=== PATIENT | female | born 1990 | race Caucasian/White ===

== ENCOUNTER 2024-03-17 23:53 | Emergency (ER) | payer OTHER ==
[~2024-03-17] VITALS: Ht 165.1 cm; Wt 75.0 kg
[2024-03-18 00:11] LABS: BILIRUBIN, URINE NEGATIVE (negative); BLOOD/HGB, URINE MODERATE (Negative); KETONE, URINE NEGATIVE (Negative); LEUK ESTERASE, URINE MODERATE (negative); NITRITE, URINE NEGATIVE (negative)
[2024-03-18] MEDS ORDERED: CYCLOBENZAPRINE10 MG PO (00:11)
[2024-03-18] MEDS ORDERED: VENTOLIN HFA18 GM INH (00:12)
[2024-03-18] MEDS ORDERED: GABAPENTIN300 MG PO (00:12)
[2024-03-18 00:30] LABS: EPITHELIAL CELLS, URINE SQUAMOUS 1+ /lpf (0-1+); WHITE BLOOD CELLS, URINE >50 /HPF (0-5)
[2024-03-18] MEDS ORDERED: SODIUM CHLORIDE 0.9% 1,000 ML IV ONE (00:30)
[2024-03-18] MEDS ORDERED: ondansetron HCL 4 MG/2 ML VIAL IV ONE (00:30)
[2024-03-18] MEDS ORDERED: MORPHINE SULFATE 4 MG/ML VIAL IV ONE (00:30)
[2024-03-18 00:31] LABS: BACTERIA, URINE 2+ /hpf (negative); CASTS, URINE NONE SEEN \\lpf; COLLECTION TYPE, URINE CLEAN CATCH; CRYSTALS, URINE NONE SEEN (0-1+); REFLEX CULTURE, URINE Yes (No)
[2024-03-18 00:40] LABS: BASOPHILS 0.3 % (0-2); EOSINOPHILS 0.3 % (0-6); HEMOGLOBIN 12.1 g/dL (12.0-18.0); LYMPHOCYTES 16.3 % (24-44); MCH 30.2 (27-36); MCHC 33.6 g/dl (30-36); MCV 89.8 fl (81-99); MONOCYTES 8.2 % (0-12); NEUTROPHILS 74.9 % (39-80); PLATELET COUNT 262 K/uL (140-440); RBC 4.01 M/ul (4.3-5.7); RDW 13.6 (10.5-15.0)
[2024-03-18 00:55] LABS: ALBUMIN 3.5 g/dL (3.4-5.0); ALBUMIN/GLOBULIN RATIO 1.06 (1.1-2.4); ANION GAP 11.1 (7-21); BILIRUBIN, TOTAL 0.4 ng/dL (0.2-1.0); BUN/CREATININE RATIO 13.33 (6.0-28.6); CALCIUM 8.9 mg/dL (8.5-10.1); CREATININE, SERUM 1.05 mg/dL (0.55-1.02); POTASSIUM 4.1 mmol/L (3.5-5.1); PROTEIN, TOTAL 6.8 g/dL (6.4-8.2)
[2024-03-18] MEDS ORDERED: CEFTRIAXONE/SODIUM CHLORIDE 2 GM/100 ML PIGGYBACK IV ONE (01:00)
[2024-03-18] MEDS ORDERED: KETOROLAC TROMETHAMINE 30 MG/ML VIAL IV ONE (02:00)
[2024-03-18] MEDS ORDERED: CEFDINIR300 MG PO (02:02)
[2024-03-18] MEDS ORDERED: HYDROCODON-ACE1 EA10 PO (02:02)
[2024-03-18] MEDS ORDERED: CEFDINIR 300 MG HOME.PACK PO ONE (02:15)
[2024-03-18] MEDS ORDERED: HYDROCODONE BIT/ACETAMINOPHEN 5/325 MG 1 TAB HOME.PACK PO ONE (02:15)
[2024-03-18 02:30] VITALS: BP 108/70
== END 2024-03-18 02:30 | disposition home or self-care (01) ==
LOC: ED 23:53
PROVIDERS: Family Medicine
DX: N12 Tubulo-interstitial nephritis, not specified as acute or chronic (principal); Z79.899 Other long term (current) drug therapy
CPT/HCPCS: 36415; 74176; 80053; 81001; 84703; 85025; 87077; 87088; 87186; 96365; 96375; 99284-25; A9270; J0696; J1885; J2270; J2405; J7030

== ENCOUNTER 2024-06-18 17:35 | Emergency (ER) | payer OTHER ==
[~2024-06-18] VITALS: Ht 165.1 cm; Wt 69.0 kg
[~2024-06-18 17:35] MED LIST: CEFDINIR300 MG PO; CYCLOBENZAPRINE10 MG PO; GABAPENTIN300 MG PO; HYDROCODON-ACE1 EA10 PO; VENTOLIN HFA18 GM INH
[2024-06-18 18:39] LABS: ABO O; RH POSITIVE
[2024-06-18 19:07] VITALS: BP 149/108
== END 2024-06-18 19:07 | disposition home or self-care (01) ==
LOC: ED 17:35
PROVIDERS: Emergency Medicine
DX: O03.4 Incomplete spontaneous abortion without complication (principal); M41.9 Scoliosis, unspecified; Z79.899 Other long term (current) drug therapy
CPT/HCPCS: 36415; 76801; 76817; 84702; 86900; 86901; 99284-25